=== PATIENT | male | born 1930 | race Caucasian/White ===

== ENCOUNTER → 2017-03-23 | Outpatient (CLI) | payer MEDICARE, BC ==
[~2017-03-23] MED LIST: ALP5 PO; ASPI-757 PO; ATOR20TA22 PO; DILT180C4 PO; DILT180C73 PO; EZET1TAB81 PO; LEV100 PO; LEV125 PO; LEV25 PO; LEVO-3 PO; LORA-1455 PO; LORA-630 PO; OXYGENHOME INH; PNEI IJ; SIMV-42 PO; TOBR5DRO55 OP; [UNRECOGNIZED DRUG - CODE] OP; vitorin
[2017-03-23 15:44] LABS: PLATELET COUNT, AUTOMATED 120 K/uL (150-450)
== END ==
LOC: LAB 15:28
PROVIDERS: ATTEND Family Medicine
DX: I10 Essential (primary) hypertension (principal); E03.9 Hypothyroidism, unspecified
CPT/HCPCS: 36415; 82040; 82247; 82310; 82374; 82435; 82565; 82947; 84075; 84132; 84155; 84295; 84443; 84450; 84460; 84520; 85025

== ENCOUNTER 2017-03-24 17:02 | Observation (INO) | payer MEDICARE, BC ==
[~2017-03-24] VITALS: Ht 170.2 cm; Wt 84.1 kg
[2017-03-24] MEDS ORDERED: ASPIRIN 81 MG CHEW PO ONE (17:25)
[2017-03-24 17:31] LABS: PLATELET COUNT, AUTOMATED 122 K/uL (150-450)
--- NOTE | 2017-03-24 17:33 | ER Report ---
History and Physical Time Seen By MD: 17:15 Hx. of Stated Complaint: PT REPORTS COUGH, SNIFFLES, CHILLS, AND STERNAL CHEST PAIN SINCE THURSDAY HPI/ROS CHIEF COMPLAINT: Cough, chest pain, fever HISTORY OF PRESENT ILLNESS: Patient is a 87-year-old male accompanied by his , who presents the ED with complaint of cough and chest pain that he has had for the past 5 days. He states that this has worsened in the past 3 days. He states that he has not noted a fever at home. He has been taking some Mucinex with minimal relief. He has not noted any body aches or sore throat. He states that his cough has been productive. He states that he has been more short of breath in the past 3 days. He states that last week he was visiting family in [place], [place] and states that he did have a grandchild that was ill with similar symptoms. He states that he has been having some nausea today but denies any diarrhea or vomiting. Patient states that he did try to [place] and back. Since he has been back in town he has been more short of breath. He initially treated this to the altitude change. He states that he was diagnosed with BOOP years ago and since this has been on oxygen only at night. He states that he never a stay oxygen during the day. However he has been on oxygen during the day for the past 3 days now. REVIEW OF SYSTEMS: Constitutional: See history of present illness. Eyes: No discharge. ENT: See history of present illness. Cardiovascular: See history of present illness. No palpitations. Respiratory: See history of present illness. Gastrointestinal: No abdominal pain, no vomiting. Musculoskeletal: No back pain. Skin: No rashes. Neurological: Headache Allergies: Coded Allergies: No Known Drug Allergies (Verified , 03/24/17) Home Meds Active Scripts Atorvastatin Calcium (LIPITOR) 20 Mg Tablet, 1 TAB PO QDAY, #90 TAB 4 Refills Prov:ALIRIO MELCHOR MD 02/11/17 Diltiazem Hcl (DILTIAZEM 24HR CD) 180 Mg Cap.er.24h, 1 CAP PO QDAY, #90 CAP 3 Refills Prov:ALIRIO MELCHOR MD 02/10/17 Reported Medications Oxygen (OXYGEN) Inha, 2 L INH HS, L 03/23/17 Tobramycin/Dexamethasone (TOBRAMYCIN-DEXAMETH OPHTH SUSP) 5 Ml Drops.susp, 1 DROP OP BID 03/23/17 Levothyroxine Sodium (LEVOTHYROXINE SODIUM) 0.125 Mg Tab, 1 TAB PO QDAY, TAB 03/23/17 Aspirin (ASPIRIN) 325 Mg Tablet, 0.5 TAB PO QDAY, TAB 10/03/16 Discontinued Reported Medications Levothyroxine Sodium (LEVOTHYROXINE SODIUM) 100 Mcg Tablet, 125 MCG PO QDAY, TAB 10/03/16 Lorazepam (ATIVAN) 0.5 Mg Tablet, 0.5-1 TAB PO BID for 30 Days 10/03/16 Reviewed Nurses Notes: Yes Old Medical Records Reviewed: Yes Hx Smoking: Yes Smoking Status: Former Smoker Hx Substance Use Disorder: No Hx Alcohol Use: No Constitutional Vital Sign - Last 24 Hours 03/24/17 03/24/17 03/24/17 03/24/17 17:07 17:09 17:12 17:17 Temp 100.9 Pulse 57 65 79 Resp 18 30 25 B/P (MAP) 136/80 (98) 136/80 Pulse Ox 78 94 95 O2 Delivery Room Air 03/24/17 03/24/17 03/24/17 03/24/17 17:17 17:22 17:27 17:39 Pulse 65 75 Resp 32 24 B/P (MAP) 137/62 (87) Pulse Ox 96 95 O2 Flow Rate 2.0 03/24/17 03/24/17 03/24/17 03/24/17 17:41 17:41 17:42 17:46 Pulse 66 72 96 Resp 18 17 18 Pulse Ox 92 97 O2 Delivery Nasal Cannula O2 Flow Rate 2.0 03/24/17 03/24/17 03/24/17 03/24/17 17:47 17:52 17:57 18:00 Pulse 68 76 79 Resp 22 26 11 B/P (MAP) 124/54 (77) Pulse Ox 93 92 92 03/24/17 03/24/17 03/24/17 03/24/17 18:02 18:07 18:12 18:17 Pulse 80 80 80 80 Resp 22 24 19 19 Pulse Ox 90 93 93 91 03/24/17 03/24/17 03/24/17 03/24/17 18:22 18:27 18:30 18:32 Pulse 53 70 59 Resp 19 21 8 B/P (MAP) 127/68 (87) Pulse Ox 93 90 91 03/24/17 03/24/17 18:37 18:42 Pulse 75 60 Resp 24 15 Pulse Ox 94 94 Intake and Output 03/24/17 03/24/17 03/25/17 15:00 23:00 07:00 Intake Total 500 ml Balance 500 ml Physical Exam General Appearance: The patient is alert, has no immediate need for airway protection and no signs of toxicity. Patient appears to be no acute distress. Eyes: Pupils equal and round no pallor or injection. ENT, Mouth: Mucous membranes are moist. Respiratory: There are no retractions, lungs are clear to auscultation. Cardiovascular: Regular rate and rhythm. Gastrointestinal: Abdomen is soft and non tender, no masses, bowel sounds normal. Skin: Warm and dry, no rashes. Musculoskeletal: Neck is supple non tender. Extremities are nontender, nonswollen and have full range of motion. DIFFERENTIAL DIAGNOSIS: After history and physical exam differential diagnosis was considered for chest pain including but not limited to myocardial ischemia, pericarditis pulmonary embolus, chest wall pain, pleural inflammation and pulmonary infectious causes. Medical Decision Making Data Points Result Diagram: 03/24/17 1715 03/24/17 1715 Laboratory Hematology Test 03/24/17 17:15 03/24/17 17:17 Red Blood Count 5.25 M/uL (4.00-5.60) Mean Corpuscular Volume 94.3 fL (80.0-96.0) Mean Corpuscular Hemoglobin 32.1 pg (26.0-33.0) Mean Corpuscular Hemoglobin Concent 34.1 g/dL (32.0-36.0) Red Cell Distribution Width 14.8 % (11.5-14.5) Mean Platelet Volume 8.4 fL (7.2-11.1) Neutrophils (%) (Auto) 66.6 % (39.4-72.5) Lymphocytes (%) (Auto) 14.4 % (17.6-49.6) Monocytes (%) (Auto) 14.5 % (4.1-12.4) Eosinophils (%) (Auto) 3.9 % (0.4-6.7) Basophils (%) (Auto) 0.6 % (0.3-1.4) Nucleated RBC Relative Count (auto) 0.0 /100WBC Neutrophils # (Auto) 6.4 K/uL (2.0-7.4) Lymphocytes # (Auto) 1.4 K/uL (1.3-3.6) Monocytes # (Auto) 1.4 K/uL (0.3-1.0) Eosinophils # (Auto) 0.4 K/uL (0.0-0.5) Basophils # (Auto) 0.1 K/uL (0.0-0.1) Nucleated RBC Absolute Count (auto) 0.00 K/uL Sodium Level 137 mmol/L (137-145) Potassium Level 4.0 mmol/L (3.5-5.0) Chloride Level 100 mmol/L (98-107) Carbon Dioxide Level 25 mmol/L (22-30) Blood Urea Nitrogen 18 mg/dl (9-21) Creatinine 1.00 mg/dl (0.66-1.25) Glomerular Filtration Rate Calc > 60.0 Random Glucose 97 mg/dl (75-110) Calcium Level 8.9 mg/dl (8.4-10.2) Total Bilirubin 1.2 mg/dl (0.2-1.3) Aspartate Amino Transf (AST/SGOT) 24 U/L (0-35) Alanine Aminotransferase (ALT/SGPT) 23 U/L (0-56) Alkaline Phosphatase 98 U/L (0-126) Troponin I 0.013 ng/ml B-Type Natriuretic Peptide 342 pg/ml (0-100) Total Protein 7.6 gm/dl (6.3-8.2) Albumin 4.0 g/dl (3.5-5.0) Influenza Type A Antigen Positive (NEGATIVE) Influenza Type B Antigen Negative (NEGATIVE) Chemistry Test 03/24/17 17:15 03/24/17 17:17 White Blood Count 9.7 k/uL (4.5-11.0) Red Blood Count 5.25 M/uL (4.00-5.60) Hemoglobin 16.9 g/dL (14.0-18.0) Hematocrit 49.5 % (42.0-52.0) Mean Corpuscular Volume 94.3 fL (80.0-96.0) Mean Corpuscular Hemoglobin 32.1 pg (26.0-33.0) Mean Corpuscular Hemoglobin Concent 34.1 g/dL (32.0-36.0) Red Cell Distribution Width 14.8 % (11.5-14.5) Platelet Count 122 K/uL (150-450) Mean Platelet Volume 8.4 fL (7.2-11.1) Neutrophils (%) (Auto) 66.6 % (39.4-72.5) Lymphocytes (%) (Auto) 14.4 % (17.6-49.6) Monocytes (%) (Auto) 14.5 % (4.1-12.4) Eosinophils (%) (Auto) 3.9 % (0.4-6.7) Basophils (%) (Auto) 0.6 % (0.3-1.4) Nucleated RBC Relative Count (auto) 0.0 /100WBC Neutrophils # (Auto) 6.4 K/uL (2.0-7.4) Lymphocytes # (Auto) 1.4 K/uL (1.3-3.6) Monocytes # (Auto) 1.4 K/uL (0.3-1.0) Eosinophils # (Auto) 0.4 K/uL (0.0-0.5) Basophils # (Auto) 0.1 K/uL (0.0-0.1) Nucleated RBC Absolute Count (auto) 0.00 K/uL Glomerular Filtration Rate Calc > 60.0 Calcium Level 8.9 mg/dl (8.4-10.2) Total Bilirubin 1.2 mg/dl (0.2-1.3) Aspartate Amino Transf (AST/SGOT) 24 U/L (0-35) Alanine Aminotransferase (ALT/SGPT) 23 U/L (0-56) Alkaline Phosphatase 98 U/L (0-126) Troponin I 0.013 ng/ml B-Type Natriuretic Peptide 342 pg/ml (0-100) Total Protein 7.6 gm/dl (6.3-8.2) Albumin 4.0 g/dl (3.5-5.0) Influenza Type A Antigen Positive (NEGATIVE) Influenza Type B Antigen Negative (NEGATIVE) EKG/Imaging EKG Interpretation 12 lead EKG: Rhythm: Normal sinus rhythm with frequent PVCs, rate 99 bpm [place]: normal ST segments: No acute ST changes identified. Imaging CXR: IMPRESSION: 1. No acute cardiopulmonary process. Report Dictated By: Nilesh Carmen at 03/24/2017 5:47 PM Report E-Signed By: Nilesh Carmen at 03/24/2017 5:49 PM I do question whether there is some infiltrate/fluid on the right lingular area. Discussed this with Dr. Samuels, hospitalist. ED Course/Re-evaluation ED Course Will obtain labs, chest x-ray, EKG. Patient will be given 500 mL normal saline bolus, aspirin 324 mg orally, DuoNeb treatment. Patient did feel a little bit better after his DuoNeb treatment. Discussed all labs and imaging with patient. He appears to have influenza A with hypoxia. 03/24/2017 7:02:43 pm - discussed patient with Dr. Samuels, hospitalists, who will accept patient under his care given his influenza a diagnosis with hypoxia. Decision to Disposition Date: Mar 24, 2017 Decision to Disposition Time: 19:04 Depart Departure Latest Vital Signs Vital Signs Date Time Temp Pulse Resp B/P (MAP) Pulse Ox O2 Delivery O2 Flow Rate FiO2 03/24/17 18:42 60 15 94 03/24/17 18:30 127/68 (87) 03/24/17 17:41 Nasal Cannula 2.0 03/24/17 17:09 100.9 Impression: Primary Impression: Influenza A Additional Impression: Hypoxia Condition: Improved Disposition: Admitted from ER Referrals: MEDARDO ABDUL MD (PCP) MD Consult Note: Dr. Samuels, Hospitalist Dr. Marvin, ED Problem Qualifiers SEVEN ABDUL PA-C Mar 24, 2017 17:33
[2017-03-24] MEDS ORDERED: NS(*) 0.9% 500 ML BAG 500 ML IV ONE (17:35)
[2017-03-24] MEDS ORDERED: ALBUTEROL/IPRATROPIUM 3 ML NEB NEB ONE (17:35)
--- NOTE | 2017-03-24 17:53 | RADIOLOGY IMAGING REPORT ---
FACILITY: [facility] [place] PATIENT NAME: Vega Huang : 1930 MR: [id number] V: [id number] EXAM DATE: ORDERING PHYSICIAN: SEVEN ABDUL TECHNOLOGIST: Location: [facility] Patient: Vega Huang : 1930 Visit/Account:[id number] Date of Sevice: 03/24/2017 2 VIEWS CHEST INDICATION: Chest tightness and cough. Recent history of shortness of breath. COMPARISON: None available FINDINGS: Cardiomediastinal silhouette and pulmonary vessels within normal limits. There is no focal infiltrate or lobar consolidation. There is no pneumothorax or pleural effusion. No nodule. Mild scarring seen in both lungs. Eventration right hemidiaphragm. Upper abdomen is unremarkable. No acute bony abnormality. Surgical c lips seen in the left neck. IMPRESSION: 1. No acute cardiopulmonary process. Report Dictated By: Nilesh Carmen at 03/24/2017 5:47 PM Report E-Signed By: Nilesh Carmen at 03/24/2017 5:49 PM WSN:[id number]
[2017-03-24] MEDS ORDERED: OSELTAMIVIR PHOS 75 MG CAP PO ONE (18:30)
[2017-03-24 19:52] VITALS: BP 141/63
[2017-03-24] MEDS ORDERED: methylPREDNIS SUCC 125 MG/2ML IVP ONE (21:25)
[2017-03-24] MEDS ORDERED: ALBUTEROL 2.5 MG/3 ML NEB NEB PRN (21:25)
[2017-03-24] MEDS ORDERED: ACETAMINOPHEN 325 MG TAB PO PRN (21:25)
--- NOTE | 2017-03-24 21:29 | EKG ---
FACILITY: [facility] PATIENT NAME: MARIELY DOLL : [id number] MR: [id number] V: [id number] EXAM DATE: ORDERING PHYSICIAN: SEVEN ABDUL TECHNOLOGIST: Test Reason : Blood Pressure : / mmHG Vent. Rate : 099 BPM Atrial Rate : 099 BPM P-R Int : 154 ms QRS Dur : 084 ms QT Int : 374 ms P-R-T Axes : 054 002 043 degrees QTc Int : 479 ms Sinus rhythm with Possible premature atrial complexes with aberrant conduction Otherwise normal ECG Borderline tachycardia Confirmed by SANDRA YI ([id number]) on 03/25/2017 6:40:07 AM Referred By: Confirmed By:SANDRA YI
--- NOTE | 2017-03-24 22:04 | History & Physical ---
History of Present Illness History of Present Illness 87yo male with a h/o resolved BOOP who came to the ER for cough x5 days and chest pain. The patient was in his normal state of health until about 5 days ago. He developed a cough. He was in [place] at the time and drove home about 2 days ago. Yesterday, he saw his PCP at it was noted that he was initially a bit hypoxic on room air, but improved with rest. This is common when he comes back from a lower altitude. Today, he developed a dull chest pain this morning. It is about 4-5/10 that is worsened with coughing. No n/v/diarrhea/ rash/mouth sores. He was exposed to sick children in [place]. The family that traveled with him to [place] have URI symptoms. 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 (2) History of atrial fibrillation Status: Resolved (3) Essential tremor (4) MALIGNANT NEOPLASM OF TONGUE, UNSPECIFIED (5) Elevated PSA (6) Hypertension Status: Chronic (7) Hypothyroid Status: Chronic Home Meds Active Scripts Atorvastatin Calcium (LIPITOR) 20 Mg Tablet, 1 TAB PO QDAY, #90 TAB 4 Refills Prov:ALIRIO MELCHOR MD 02/11/17 Diltiazem Hcl (DILTIAZEM 24HR CD) 180 Mg Cap.er.24h, 1 CAP PO QDAY, #90 CAP 3 Refills Prov:ALIRIO MELCHOR MD 02/10/17 Reported Medications Oxygen (OXYGEN) Inha, 2 L INH HS, L 03/23/17 Tobramycin/Dexamethasone (TOBRAMYCIN-DEXAMETH OPHTH SUSP) 5 Ml Drops.susp, 1 DROP OP BID 03/23/17 Levothyroxine Sodium (LEVOTHYROXINE SODIUM) 0.125 Mg Tab, 1 TAB PO QDAY, TAB 03/23/17 Aspirin (ASPIRIN) 325 Mg Tablet, 0.5 TAB PO QDAY, TAB 10/03/16 Discontinued Reported Medications Levothyroxine Sodium (LEVOTHYROXINE SODIUM) 100 Mcg Tablet, 125 MCG PO QDAY, TAB 10/03/16 Lorazepam (ATIVAN) 0.5 Mg Tablet, 0.5-1 TAB PO BID for 30 Days 10/03/16 Allergies: Coded Allergies: No Known Drug Allergies (Verified , 03/24/17) Other Social/Family Hx No history of smoking. No current alcohol use. Lives with his in [place]. Hx Smoking: Yes Smoking Status: Former Smoker Caffeine Intake: Coffee, Tea, Soda Caffeine/Cups Per Day: 3 CUPS COFFEE, 2 CUPS TEA, 1 SODA Hx Alcohol Use: No Hx Substance Use Disorder: No Social Drug Use: Never Review of Systems All Systems Reviewed/Normal: Yes, Except as Noted Exam Vital Signs Vital Signs Date Time Temp Pulse Resp B/P (MAP) Pulse Ox O2 Delivery O2 Flow Rate FiO2 03/24/17 19:52 97.9 52 24 141/63 (89) 89 Nasal Cannula 2.0 General Appearance: No Acute Distress, Other (Eyes closed most of the time.) Neuro: No Gross deficits Eyes: PERRLA ENT: Moist Mucous Membranes Cardiovascular: Regular Rate and Rhythm Respiratory: Clear to Auscultation (but coughs with deeper breaths) GI: Abd Soft and Non-Tender : No CVA Tenderness Extremities: No Edema Integumentary: No Jaundice, No Cyanosis Medical Decision Making Data Points Result Diagram: 03/24/17 1715 03/24/17 1715 Item Value Date Time B-Type Natriuretic Peptide 342 pg/ml H 03/24/17 1715 Thyroid Stimulating Hormone (TSH) 0.85 uIU/ml 03/23/17 1535 Total Bilirubin 1.2 mg/dl 03/24/17 1715 Aspartate Amino Transf (AST/SGOT) 24 U/L 03/24/17 1715 Alanine Aminotransferase (ALT/SGPT) 23 U/L 03/24/17 1715 Alkaline Phosphatase 98 U/L 03/24/17 1715 Troponin I 0.013 ng/ml 03/24/17 1715 Influenza Type A Antigen Positive 03/24/17 1717 Influenza Type B Antigen Negative 03/24/17 1717 Urine WBC <1 /HPF 03/24/16 1040 Urine RBC None /HPF 03/24/16 1040 Urine Urobilinogen Negative mg/dL 03/24/16 1040 Urine Bilirubin Negative 03/24/16 1040 Urine Leukocyte Esterase Negative 03/24/16 1040 Urine Squamous Epithelial Cells None /LPF 03/24/16 1040 Urine Nitrite Negative 03/24/16 1040 Platelet Count 122 K/uL L 03/24/17 1715 Platelet Count 120 K/uL L 03/23/17 1535 Monocytes (%) (Auto) 14.5 % H 03/24/17 1715 Monocytes (%) (Auto) 14.0 % H 03/23/17 1535 Monocytes (%) (Auto) 10.6 % 03/24/16 1040 Platelet Count 210 K/uL 03/24/16 1040 Neutrophils (%) (Auto) 55.1 % 03/24/16 1040 Neutrophils (%) (Auto) 67.6 % 03/23/17 1535 Neutrophils (%) (Auto) 66.6 % 03/24/17 1715 Lymphocytes (%) (Auto) 14.4 % L 03/24/17 1715 Lymphocytes (%) (Auto) 14.8 % L 03/23/17 1535 Lymphocytes (%) (Auto) 28.0 % 03/24/16 1040 White Blood Count 8.4 k/uL 03/23/17 1535 White Blood Count 7.2 k/uL 03/24/16 1040 EKG / Imaging EKG Interpretation NSR with PVC trigeminy. No ST-T abnormalities. Imaging CXR - 1. No acute cardiopulmonary process. Assessment and Plan Problems: (1) Influenza A Status: Acute Assessment & Plan: He presented with 5 days of cough, but pleuritic chest pain for a day. He had a fever in the ER and mild hypoxia. The family didn't feel comfortable with him going home. Will place in contact isolation, give supplemental O2 and treat with renally dosed Tamiflu. Nebs helped the chest pain in the ER, so will give scheduled DuoNeb and prn Albuterol. Will give a dose of methylprednisolone. (2) Hypoxia Status: Acute Assessment & Plan: He has a h/o BOOP that is "resolved". He wears O2 at night and wears it during the day when he comes back from trips at lower elevations like his recent trip to [place]. (3) Hypertension Status: Chronic Assessment & Plan: Will hold diltiazem because lowish HR. He might need to be on another medication. (4) Hypothyroid Status: Chronic Assessment & Plan: Continue levothyroxine. (5) History of atrial fibrillation Status: Resolved Assessment & Plan: He is in a NSR here. He takes ASA 162mg a day and is on Diltiazem. See above. (6) BOOP (bronchiolitis obliterans with organizing pneumonia) Status: Resolved Copies to: MEDARDO ABDUL MD Venous Thromboembolism Antithrombotics Is Pt On Any Antithrombotics?: No Exam Sepsis Risk: No Definite Risk SANDRA YI MD Mar 24, 2017 22:04
[2017-03-24 22:47] VITALS: BP 125/73
[2017-03-25 03:20] VITALS: BP 111/57
[2017-03-25 05:56] LABS: PLATELET COUNT, AUTOMATED 112 K/uL (150-450)
[2017-03-25] MEDS ORDERED: LEVOTHYROXINE SOD 0.125 MG TAB PO SCH (06:00)
[2017-03-25 07:23] VITALS: BP 142/76
[2017-03-25] MEDS ORDERED: ALBU2.5V36 NEB (08:39)
[2017-03-25] MEDS ORDERED: OSEL30CA PO (08:39)
[2017-03-25] MEDS ORDERED: ACET-2007 PO (08:39)
[2017-03-25] MEDS ORDERED: PRED20TA6 PO (08:39)
--- NOTE | 2017-03-25 08:52 | Hospitalist Depart ---
Discharge Summary Reason for Hosp/Final Diag: (1) Influenza A Status: Acute Hospital Course & Plan: He presented with 5 days of cough and pleuritic chest pain for a day. He had a fever in the ER and mild hypoxia. He was admitted to the medical floor and placed in contact isolation, given supplemental O2 and started on Tamiflu (reduced dose due to age/creatinine clearance). He did have some mild persistent hypoxia and will now be on continuous oxygen. He did receive a short pulse of steroids and will complete a course as an outpatient. He will follow up with Dr. Abdul in the next week. (2) Hypoxia Status: Acute Hospital Course & Plan: He has a history of BOOP that is "resolved". No changes were noted on CXR. He wears O2 at night and has been wearing it during the day when he comes back from trips at lower elevations - like his recent trip to [place]. He will now be on continuous oxygen. He will follow up with Dr. Abdul regarding this as well. (3) Hypertension Status: Chronic Hospital Course & Plan: His BPs were under good control, but he was noted to have borderline heart rate on occasion during his stay. Will continue his same for now, but may need to consider changing his regimen as an outpatient. (4) Hypothyroid Status: Chronic Hospital Course & Plan: Continue levothyroxine. (5) History of atrial fibrillation Status: Resolved Hospital Course & Plan: He was in sinus rhythm while here. He takes ASA 162mg a day and is on Diltiazem. (6) BOOP (bronchiolitis obliterans with organizing pneumonia) Status: Resolved Departure Weight (Pounds): 185 Weight (Ounces): 6.0 Result Diagram: 03/25/17 0541 03/24/17 171 Item Value Date Time Albumin 4.0 g/dl 03/24/171714 Total Protein 7.6 gm/dl 03/24/171714 Troponin I 0.013 ng/ml 03/24/17 171 Alkaline Phosphatase 98 U/L 03/24/17 1715 Alanine Aminotransferase (ALT/SGPT) 23 U/L 03/24/17 171 Aspartate Amino Transf (AST/SGOT) 24 U/L 03/24/17 171 Total Bilirubin 1.2 mg/dl 03/24/17 171 Calcium Level 8.9 mg/dl 03/24/17 1715 Troponin I 0.014 ng/ml 03/25/17 0541 Urine Color Yellow 03/24/16 1040 Urine Clarity Clear 03/24/16 1040 Urine pH 5.0 pH 03/24/16 1040 Urine Specific [place] 1.009 03/24/16 1040 Urine Protein Negative mg/dL 03/24/16 1040 Urine Glucose (UA) Negative mg/dL 03/24/16 1040 Urine Ketones Negative mg/dL 03/24/16 1040 Urine Blood Negative 03/24/16 1040 Urine Nitrite Negative 03/24/16 1040 Urine Bilirubin Negative 03/24/16 1040 Urine Urobilinogen Negative mg/dL 03/24/16 1040 Urine Leukocyte Esterase Negative 03/24/16 1040 Urine RBC None /HPF 03/24/16 1040 Urine WBC <1 /HPF 03/24/16 1040 Urine Squamous Epithelial Cells None /LPF 03/24/16 1040 Urine Bacteria Negative /HPF 03/24/16 1040 Urine Mucus None /HPF 03/24/16 1040 Influenza Type A Antigen Positive 03/24/17 1717 Influenza Type B Antigen Negative 03/24/17 1717 White Blood Count 9.7 k/uL 03/24/17 1715 Hemoglobin 16.9 g/dL 03/24/17 1715 Hematocrit 49.5 % 03/24/17 1715 Platelet Count 122 K/uL L 03/24/17 1715 Imaging PATIENT NAME: Mariely Doll : 1930 MR: [id number] V: [id number] EXAM DATE: ORDERING PHYSICIAN: SEVEN ABDUL TECHNOLOGIST: Location: [facility] Patient: Mariely Doll : 1930 Visit/Account:[id number] Date of Sevice: 03/24/2017 2 VIEWS CHEST INDICATION: Chest tightness and cough. Recent history of shortness of breath. COMPARISON: None available FINDINGS: Cardiomediastinal silhouette and pulmonary vessels within normal limits. There is no focal infiltrate or lobar consolidation. There is no pneumothorax or pleural effusion. No nodule. Mild scarring seen in both lungs. Eventration right hemidiaphragm. Upper abdomen is unremarkable. No acute bony abnormality. Surgical clips seen in the left neck. IMPRESSION: 1. No acute cardiopulmonary process. Report Dictated By: Nilesh Carmen at 03/24/2017 5:47 PM Report E-Signed By: Nilesh Carmen at 03/24/2017 5:49 PM WSN:[id number] EKG PATIENT NAME: MARIELY DOLL : [id number] MR: [id number] V: [id number] EXAM DATE: ORDERING PHYSICIAN: SEVEN ABDUL TECHNOLOGIST: Test Reason : Blood Pressure : / mmHG Vent. Rate : 099 BPM Atrial Rate : 099 BPM P-R Int : 154 ms QRS Dur : 084 ms QT Int : 374 ms P-R-T Axes : 054 002 043 degrees QTc Int : 479 ms Sinus rhythm with Possible premature atrial complexes with aberrant conduction Otherwise normal ECG Borderline tachycardia Confirmed by SANDRA YI ([id number]) on 03/25/2017 6:40:07 AM Referred By: Confirmed By:SANDRA YI Condition: Improved Discharge: Home, Self Care Time Spent: > 30 min Discharge Instructions Home Meds Active Scripts Prednisone (PREDNISONE) 20 Mg Tablet, 40 MG PO QDAY, #6 TAB 0 Refills Two pills a day for two days, then one pill a day for two days then off Prov:NANCY SHARP MD 03/25/17 Oseltamivir Phosphate (Oseltamivir Phosphate) 30 Mg Capsule, 30 MG PO BID, #10 CAPSULE 0 Refills Prov:NANCY SHARP MD 03/25/17 Albuterol Sulfate 0.083% (ALBUTEROL SULFATE 0.083%) 2.5 Mg/3 Ml Vial.neb, 2.5 MG NEB Q4HR Y for SHORTNESS OF BREATH, #100 VIAL 1 Refill Prov:NANCY SHARP MD 03/25/17 Acetaminophen (MAPAP) 325 Mg Tablet, 650 MG PO Q6H Y for PAIN OR FEVER 100 OR GREATER for 14 Days, TAB Prov:NANCY SHARP MD 03/25/17 Atorvastatin Calcium (LIPITOR) 20 Mg Tablet, 1 TAB PO QDAY, #90 TAB 4 Refills Prov:ALIRIO MELCHOR MD 02/11/17 Diltiazem Hcl (DILTIAZEM 24HR CD) 180 Mg Cap.er.24h, 1 CAP PO QDAY, #90 CAP 3 Refills Prov:ALIRIO MELCHOR MD 02/10/17 Reported Medications Oxygen (OXYGEN) Inha, 2 L INH HS, L 03/23/17 Tobramycin/Dexamethasone (TOBRAMYCIN-DEXAMETH OPHTH SUSP) 5 Ml Drops.susp, 1 DROP OP BID 03/23/17 Levothyroxine Sodium (LEVOTHYROXINE SODIUM) 0.125 Mg Tab, 1 TAB PO QDAY, TAB 03/23/17 Aspirin (ASPIRIN) 325 Mg Tablet, 0.5 TAB PO QDAY, TAB 10/03/16 Discontinued Reported Medications Levothyroxine Sodium (LEVOTHYROXINE SODIUM) 100 Mcg Tablet, 125 MCG PO QDAY, TAB 10/03/16 Lorazepam (ATIVAN) 0.5 Mg Tablet, 0.5-1 TAB PO BID for 30 Days 10/03/16 Follow up Referrals: Internal Medicine @ [facility] with Dacia Abdul Md Diet: Regular, Low Cholesterol & Sat Fat Activity: As Tolerated, No Exertion Special Instructions: Home oxygen at 3L via nasal cannula continuously. Follow up with Dr. Abdul in approximately one week or sooner if any problems. Copies to: DACIA ABDUL MD Venous Thromboembolism Antithrombotics Is Pt On Any Antithrombotics?: No NANCY SHARP MD Mar 25, 2017 08:52
--- NOTE | 2017-03-25 08:53 | Antimicrobial Stewardship ---
Antimicrobial Stewardship MD Service: Hospitalist Indications: Other (Influenza A) Antimicrobial Used Tamiflu 75mg x1 on 03/24/17 PM dose, then 30mg po BID (CrCl ~50ml/min) Duration of Therapy: 5 Days Height (Calculated Centimeters: [phone] Weight (Calculated Kilograms): 84.085 Creatinine Cl CrCl ~50 ml/min Culture Results: No Patient Improving Clinically: Yes Tolerating Oral Fluids: Yes Able to Absorb PO Meds: Yes Received >24 hr of IV Abx: No Comments Plan is for patient to discharge home. Afebrile since 1700 on 03/24/17, on Tamiflu. Continue Tamiflu 30 mg po BID x 5 days. Close contacts have initiated prophylaxis. Soumya Wahl, PharmD, BCOP [facility] Mar 25, 2017 08:53
[2017-03-25] MEDS ORDERED: ENOXAPARIN 40 MG/0.4ML SYR SC SCH (09:00)
[2017-03-25] MEDS ORDERED: TOBRAMYCIN/DEX OP SUSP 2.5 ML OU SCH (09:00)
[2017-03-25] MEDS ORDERED: OSELTAMIVIR PHOS 30 MG CAP PO SCH (09:00)
[2017-03-25] MEDS ORDERED: ASPIRIN 81 MG ENTERIC COATED PO SCH (09:00)
[2017-03-25] MEDS ORDERED: predniSONE 20 MG TAB PO SCH (09:00)
== END 2017-03-25 08:35 | disposition home or self-care (01) ==
LOC: ER 17:10 → MED 18:46 → INTOOBSV 18:46
PROVIDERS: ADMIT Internal Medicine; ATTEND Internal Medicine
DX: J09.X2 Influenza due to identified novel influenza A virus with other respiratory manifestations (principal); R09.02 Hypoxemia; I10 Essential (primary) hypertension; E03.9 Hypothyroidism, unspecified; I48.2 Chronic atrial fibrillation; Z79.01 Long term (current) use of anticoagulants; R06.02 Shortness of breath
CPT/HCPCS: 36415; 71046; 83880; 84484; 85025; 87502; 93005; 94640; 96360; 99285; A9270; G0378; J2930; J7040; J7512; J7613; J7620; 82040; 82247; 82310; 82374; 82435; 82565; 82947; 84075; 84132; 84155; 84295; 84450; 84460; 84520

== ENCOUNTER → 2017-04-30 | Outpatient (CLI) | payer MEDICARE, BC ==
[~2017-04-30] MED LIST changes: +ACET-2007 PO; +ALBU2.5V36 NEB; +FLUT16SP19 NS; +OSEL30CA PO; +PRED20TA6 PO
== END ==
LOC: LAB 11:41
PROVIDERS: ATTEND Urology
DX: R97.20 Elevated prostate specific antigen [PSA] (principal)
CPT/HCPCS: 36415; 84153

== ENCOUNTER → 2017-08-17 | Outpatient (CLI) | payer MEDICARE, BC ==
[~2017-08-17] MED LIST changes: +CLOB15OI16 TP; +GUAI473L81 PO; +LEV112 PO
--- NOTE | 2017-08-17 10:42 | EKG ---
FACILITY: [facility] - [place], [place] PATIENT NAME: MARIELY DOLL : [id number] MR: [id number] V: [id number] EXAM DATE: ORDERING PHYSICIAN: MEDARDO ABDUL TECHNOLOGIST: PATRICIA Sullivan Reason : IRREGULAR HEART BEAT Blood Pressure : / mmHG Vent. Rate : 073 BPM Atrial Rate : 073 BPM P-R Int : 178 ms QRS Dur : 094 ms QT Int : 408 ms P-R-T Axes : 040 -13 050 degrees QTc Int : 449 ms Sinus rhythm with occasional premature ventricular complexes Otherwise normal ECG When compared with ECG of 24-MAR-2017 17:12, premature ventricular complexes are now present aberrant conduction is no longer present Referred By: MEDARDO ABDUL Confirmed By:
== END ==
LOC: RESP 10:34
PROVIDERS: ATTEND Family Medicine
DX: Z02.9 Encounter for administrative examinations, unspecified (principal)

== ENCOUNTER → 2017-08-17 | Outpatient (REF) | payer MEDICARE, BC | LOC: ZZSENDIN 10:49 | PROVIDERS: ATTEND Urology | DX: R97.20 Elevated prostate specific antigen [PSA] (principal) | CPT/HCPCS: 84153 ==

== ENCOUNTER → 2017-08-17 | Outpatient (CLI) | payer MEDICARE, BC ==
[2017-08-17 10:58] LABS: PLATELET COUNT, AUTOMATED 142 K/uL (150-450)
== END ==
LOC: LAB 10:33
PROVIDERS: ATTEND Family Medicine
DX: R00.0 Tachycardia, unspecified (principal)
CPT/HCPCS: 36415; 82040; 82247; 82310; 82374; 82435; 82565; 82947; 84075; 84132; 84155; 84295; 84443; 84450; 84460; 84520; 85025

== ENCOUNTER → 2017-09-21 | Outpatient (CLI) | payer MEDICARE, BC | LOC: LAB 09:22 | PROVIDERS: ATTEND Family Medicine | DX: E03.9 Hypothyroidism, unspecified (principal) | CPT/HCPCS: 36415; 84443 ==

== ENCOUNTER 2018-01-09 12:30 | Emergency (ER) | payer MEDICARE, BC ==
--- NOTE | 2018-01-09 12:41 | ER Report ---
History and Physical Time Seen By MD: 12:41 HPI/ROS CHIEF COMPLAINT: hip injury and bruising and pain by knee HISTORY OF PRESENT ILLNESS: This is an 87 year old male. He had an injury to the right buttock and hip area, where he thought he pulled a muscle. Several days later started getting bruising in the lower thigh, just above the knee. This has progressed down into the lateral calf as well. Has some pain over the lateral hamstring tendon. Has some pain in the gluteus muscles of the right hip. He was worried about possible blood clots with associated swelling in the thigh and into the calf. Normal sensation in the leg. No shortness of breath or chest pain. Allergies: Coded Allergies: No Known Drug Allergies (Verified , 03/24/17) Home Meds Active Scripts Levothyroxine Sodium (LEVOTHYROXINE SODIUM) 0.112 Mg Tab, 1 TAB PO QDAY for 90 Days, #90 TAB 4 Refills Prov:MEDARDO ABDUL MD 11/17/17 Atorvastatin Calcium (LIPITOR) 20 Mg Tablet, 1 TAB PO QDAY, #90 TAB 4 Refills Prov:ALIRIO MELCHOR MD 02/11/17 Diltiazem Hcl (DILTIAZEM 24HR CD) 180 Mg Cap.er.24h, 1 CAP PO QDAY, #90 CAP 3 Refills Prov:ALIRIO MELCHOR MD 02/10/17 Reported Medications Oxygen (OXYGEN) Inha, 2 L INH HS, L 03/23/17 Aspirin (ASPIRIN) 325 Mg Tablet, 0.5 TAB PO QDAY, TAB 10/03/16 Discontinued Reported Medications Tobramycin/Dexamethasone (TOBRAMYCIN-DEXAMETH OPHTH SUSP) 5 Ml Drops.susp, 1 DROP OP BID 03/23/17 Discontinued Scripts Clobetasol Propionate (CLOBETASOL PROPIONATE) 15 Gm Oint...g., 1 BREE TP PRN for 90 Days, #1 TUBE 0 Refills Prov:MEDARDO ABDUL MD 06/01/17 Albuterol Sulfate 0.083% (ALBUTEROL SULFATE 0.083%) 2.5 Mg/3 Ml Vial.neb, 2.5 MG NEB Q4HR PRN for SHORTNESS OF BREATH, #100 VIAL 1 Refill Prov:NANCY SHARP MD 03/25/17 Acetaminophen (MAPAP) 325 Mg Tablet, 650 MG PO Q6H PRN for PAIN OR FEVER 100 OR GREATER for 14 Days, TAB Prov:NANCY SHARP MD 03/25/17 Reviewed Nurses Notes: Yes Hx Smoking: Yes Smoking Status: Former Smoker Hx Substance Use Disorder: No Hx Alcohol Use: No Constitutional Vital Sign - Last 24 Hours 01/09/18 12:42 Temp 98.5 Pulse 76 Resp 20 B/P (MAP) 146/82 Pulse Ox 91 O2 Delivery Room Air Physical Exam General: Alert, no acute distress. Musculoskeletal: Some pain in the right gluteus area. No pain over greater trochanter, pelvis or groin area. Has pain mainly over the muscles. No pain in the thigh until the lateral hamstring tendon. No other pain in the knee. Not much worse with range of motion. Skin: Bruising behind the knee, more medial, that extends to the lateral calf. No masses. Slight swelling in thigh and just below knee. Cardiovascular: Normal distal pulses and capillary refill. Neuro: Normal sensation throughout, no deficits. Medical Decision Making Data Points Result Diagram: 01/09/18 1257 01/09/18 1257 Laboratory Hematology Test 01/09/18 12:57 Red Blood Count 4.90 M/uL (4.00-5.60) Mean Corpuscular Volume 97.8 fL (80.0-96.0) Mean Corpuscular Hemoglobin 32.9 pg (26.0-33.0) Mean Corpuscular Hemoglobin Concent 33.6 g/dL (32.0-36.0) Red Cell Distribution Width 15.0 % (11.5-14.5) Mean Platelet Volume 7.6 fL (7.2-11.1) Neutrophils (%) (Auto) 57.4 % (39.4-72.5) Lymphocytes (%) (Auto) 21.5 % (17.6-49.6) Monocytes (%) (Auto) 13.4 % (4.1-12.4) Eosinophils (%) (Auto) 6.3 % (0.4-6.7) Basophils (%) (Auto) 1.4 % (0.3-1.4) Nucleated RBC Relative Count (auto) 0.0 /100WBC Neutrophils # (Auto) 3.9 K/uL (2.0-7.4) Lymphocytes # (Auto) 1.5 K/uL (1.3-3.6) Monocytes # (Auto) 0.9 K/uL (0.3-1.0) Eosinophils # (Auto) 0.4 K/uL (0.0-0.5) Basophils # (Auto) 0.1 K/uL (0.0-0.1) Nucleated RBC Absolute Count (auto) 0.00 K/uL Prothrombin Time 13.7 seconds (12.0-14.4) Prothromb Time International Ratio 1.05 Activated Partial Thromboplast Time 27 seconds (23-35) Sodium Level 140 mmol/L (137-145) Potassium Level 4.2 mmol/L (3.5-5.0) Chloride Level 104 mmol/L (98-107) Carbon Dioxide Level 25 mmol/L (22-30) Blood Urea Nitrogen 18 mg/dl (9-21) Creatinine 1.10 mg/dl (0.66-1.25) Glomerular Filtration Rate Calc > 60.0 Random Glucose 122 mg/dl (75-110) Calcium Level 9.2 mg/dl (8.4-10.2) Total Bilirubin 1.0 mg/dl (0.2-1.3) Aspartate Amino Transf (AST/SGOT) 19 U/L (0-35) Alanine Aminotransferase (ALT/SGPT) 18 U/L (0-56) Alkaline Phosphatase 71 U/L (0-126) Total Protein 7.2 g/dl (6.3-8.2) Albumin 4.0 g/dl (3.5-5.0) Chemistry Test 01/09/18 12:57 White Blood Count 6.8 k/uL (4.5-11.0) Red Blood Count 4.90 M/uL (4.00-5.60) Hemoglobin 16.1 g/dL (14.0-18.0) Hematocrit 47.9 % (42.0-52.0) Mean Corpuscular Volume 97.8 fL (80.0-96.0) Mean Corpuscular Hemoglobin 32.9 pg (26.0-33.0) Mean Corpuscular Hemoglobin Concent 33.6 g/dL (32.0-36.0) Red Cell Distribution Width 15.0 % (11.5-14.5) Platelet Count 164 K/uL (150-450) Mean Platelet Volume 7.6 fL (7.2-11.1) Neutrophils (%) (Auto) 57.4 % (39.4-72.5) Lymphocytes (%) (Auto) 21.5 % (17.6-49.6) Monocytes (%) (Auto) 13.4 % (4.1-12.4) Eosinophils (%) (Auto) 6.3 % (0.4-6.7) Basophils (%) (Auto) 1.4 % (0.3-1.4) Nucleated RBC Relative Count (auto) 0.0 /100WBC Neutrophils # (Auto) 3.9 K/uL (2.0-7.4) Lymphocytes # (Auto) 1.5 K/uL (1.3-3.6) Monocytes # (Auto) 0.9 K/uL (0.3-1.0) Eosinophils # (Auto) 0.4 K/uL (0.0-0.5) Basophils # (Auto) 0.1 K/uL (0.0-0.1) Nucleated RBC Absolute Count (auto) 0.00 K/uL Prothrombin Time 13.7 seconds (12.0-14.4) Prothromb Time International Ratio 1.05 Activated Partial Thromboplast Time 27 seconds (23-35) Glomerular Filtration Rate Calc > 60.0 Calcium Level 9.2 mg/dl (8.4-10.2) Total Bilirubin 1.0 mg/dl (0.2-1.3) Aspartate Amino Transf (AST/SGOT) 19 U/L (0-35) Alanine Aminotransferase (ALT/SGPT) 18 U/L (0-56) Alkaline Phosphatase 71 U/L (0-126) Total Protein 7.2 g/dl (6.3-8.2) Albumin 4.0 g/dl (3.5-5.0) Coagulation Test 01/09/18 12:57 Prothrombin Time 13.7 seconds Prothromb Time International Ratio 1.05 Activated Partial Thromboplast Time 27 seconds EKG/Imaging Imaging HIP RIGHT HISTORY: Bruising swelling pain hip and knee ADDITIONAL HISTORY: None. COMPARISON: None. FINDINGS: AP view the pelvis and coned-down frog-leg view of the right hip was obtained. There is minimal narrowing in both hip joints. No hip fracture is identified. Both femoral heads have a normal configuration. Pelvic ring is intact. Symphysis and SI joints are within normal limits. There is no pubic ramus fracture. Degenerative changes present in the lower lumbar spine. Bones are osteopenic. IMPRESSION: No evidence of acute osseous abnormality of the right hip or pelvis. If there is ongoing concern for a fracture, cross-sectional imaging could be considered. Report Dictated By: Rubina Zuniga MD at 01/09/2018 1:39 PM KNEE 4 VIEW RIGHT Indication: Bruising, swelling, and pain Comparison: None available Findings: 4 views right knee were obtained. No evidence of fracture, dislocation, or acute osseous abnormality of the right knee. The joint spaces are well-maintained. There is mild tricompartmental osteophytosis. No evidence of joint effusion. There is no focal soft tissue abnormality. No evidence of radiopaque foreign body. Mild/moderate popliteal vascular calcifications. IMPRESSION: 1.No acute osseous abnormality of the right knee. 2. Mild degenerative changes. Report Dictated By: Jason De La Vega MD at 01/09/2018 2:10 PM VENOUS DOPP LOW RIGHT EXTREMIT HISTORY: bruising, swelling, pain, right leg hip to knee COMPARISON: None. FINDINGS: Grayscale, duplex and color Doppler interrogation of the right lower extremity deep veins from common femoral vein to proximal calf was completed. The greater saphenous vein in the proximal thigh was evaluated using similar technique. Common femoral vein - Negative. Femoral vein - Negative. Deep femoral vein - Negative. Popliteal vein - Negative. Visualized deep calf veins - Negative. Popliteal fossa: Negative. Greater saphenous vein in the proximal thigh: Negative. IMPRESSION: No evidence for DVT. Report Dictated By: Jason De La Vega MD at 01/09/2018 2:01 PM ED Course/Re-evaluation ED Course Reviewed the results of imaging with the patient. Labs are unremarkable. Conservative management. Could consider starting physical therapy. Decision to Disposition Date: Jan 09, 2018 Decision to Disposition Time: 14:40 Depart Departure Latest Vital Signs Vital Signs Date Time Temp Pulse Resp B/P (MAP) Pulse Ox O2 Delivery O2 Flow Rate FiO2 01/09/18 12:42 98.5 76 20 146/82 91 Room Air Impression: Primary Impression: Bruising Additional Impression: Muscle strain of right gluteal region Condition: Improved Disposition: HOME OR SELF-CARE Referrals: MEDARDO ABDUL MD (PCP) Patient Instructions: Contusion in Adults (ED), Muscle Strain (ED) Additional Instructions: There is no sign of blood clot or bony abnormality on imaging today. Bruising appears to been caused by a muscle strain in the hip and gluteal area. The results of the bruising is lower on the leg is due to grafting causing the blood to track down to the lower area. He can use Tylenol or ibuprofen as needed for pain. Heating pad or cold packs as needed Problem Qualifiers Additional Impression: Muscle strain of right gluteal region Encounter type: initial encounter Qualified Codes: S76.011A - Strain of muscle, fascia and tendon of right hip, initial encounter MARY BARCLAY MD Jan 09, 2018 12:41
[2018-01-09 12:42] VITALS: BP 146/82
[2018-01-09 13:07] LABS: PLATELET COUNT, AUTOMATED 164 K/uL (150-450)
[2018-01-09 13:27] LABS: INR 1.05
--- NOTE | 2018-01-09 13:44 | RADIOLOGY IMAGING REPORT ---
FACILITY: [facility] PATIENT NAME: Vega Huang : 1930 MR: [id number] V: [id number] EXAM DATE: ORDERING PHYSICIAN: MARY BARCLAY TECHNOLOGIST: [facility]: [facility] Patient: Vega Huang : 1930 Visit/Account:[id number] Date of Sevice: 01/09/2018 HIP RIGHT HISTORY: Bruising swelling pain hip and knee ADDITIONAL HISTORY: None. COMPARISON: None. FINDINGS: AP view the pelvis and coned-down frog-leg view of the right hip was obtained. There is minimal narro wing in both hip joints. No hip fracture is identified. Both femoral heads have a normal configuratio n. Pelvic ring is intact. Symphysis and SI joints are within normal limits. There is no pubic ramus f racture. Degenerative changes present in the lower lumbar spine. Bones are osteopenic. IMPRESSION: No evidence of acute osseous abnormality of the right hip or pelvis. If there is ongoing concern for a fracture, cross-sectional imaging could be considered. Report Dictated By: Rubina Zuniga MD at 01/09/2018 1:39 PM Report E-Signed By: Rubina Zuniga MD at 01/09/2018 1:40 PM WSN:[id number]
--- NOTE | 2018-01-09 14:06 | RADIOLOGY IMAGING REPORT ---
FACILITY: [facility] PATIENT NAME: Vega Huang : 1930 MR: [id number] V: [id number] EXAM DATE: ORDERING PHYSICIAN: MARY BARCLAY TECHNOLOGIST: Location: [facility] - [place] Patient: Vega Huang : 1930 Visit/Account:[id number] Date of Sevice: 01/09/2018 VENOUS DOPP LOW RIGHT EXTREMIT HISTORY: bruising, swelling, pain, right leg hip to knee COMPARISON: None. FINDINGS: Grayscale, duplex and color Doppler interrogation of the right lower extremity deep veins from common femoral vein to proximal calf was completed. The greater saphenous vein in the proximal thigh was ev aluated using similar technique. Common femoral vein - Negative. Femoral vein - Negative. Deep femoral vein - Negative. Popliteal vein - Negative. Visualized deep calf veins - Negative. Popliteal fossa: Negative. Greater saphenous vein in the proximal thigh: Negative. IMPRESSION: No evidence for DVT. Report Dictated By: Jason De La Vega MD at 01/09/2018 2:01 PM Report E-Signed By: Jason De La Vega MD at 01/09/2018 2:02 PM [id number]
--- NOTE | 2018-01-09 14:16 | RADIOLOGY IMAGING REPORT ---
FACILITY: [facility] PATIENT NAME: Vega Huang : 1930 MR: [id number] V: [id number] EXAM DATE: ORDERING PHYSICIAN: MARY BRACLAY TECHNOLOGIST: Location: [facility] - [place] Patient: Vega Huang : 1930 Visit/Account:[id number] Date of Sevice: 01/09/2018 KNEE 4 VIEW RIGHT Indication: Bruising, swelling, and pain Comparison: None available Findings: 4 views right knee were obtained. No evidence of fracture, dislocation, or acute osseous abnormality of the right knee. The joint spaces are well-maintained. There is mild tricompartmental osteophytosis. No evidence of joint effusion. There is no focal soft tissue abnormality. No evidence of radiopaque foreign body. Mild/moderate popliteal vascular calcifications. IMPRESSION: 1.No acute osseous abnormality of the right knee. 2. Mild degenerative changes. Report Dictated By: Jason De La Vega MD at 01/09/2018 2:10 PM Report E-Signed By: Jason De La Vega MD at 01/09/2018 2:12 PM WSN:[id number]
== END 2018-01-09 14:52 | disposition home or self-care (01) ==
LOC: ER 12:39
DX: S76.011A Strain of muscle, fascia and tendon of right hip, initial encounter (principal); S70.11XA Contusion of right thigh, initial encounter; S80.11XA Contusion of right lower leg, initial encounter
CPT/HCPCS: 36415; 73564; 82040; 82247; 82310; 82374; 82435; 82565; 82947; 84075; 84132; 84155; 84295; 84450; 84460; 84520; 85025; 85610; 85730; 99284

== ENCOUNTER → 2018-01-22 | Outpatient (CLI) | payer MEDICARE, BC | LOC: LAB 11:44 | PROVIDERS: ATTEND Urology | DX: R97.20 Elevated prostate specific antigen [PSA] (principal) | CPT/HCPCS: 36415; 84153 ==

== ENCOUNTER → 2018-03-24 | Outpatient (CLI) | payer MEDICARE, BC | LOC: LAB 10:14 | PROVIDERS: ATTEND Family Medicine | DX: E03.9 Hypothyroidism, unspecified (principal); E78.5 Hyperlipidemia, unspecified; I10 Essential (primary) hypertension | CPT/HCPCS: 36415; 82040; 82247; 82310; 82374; 82435; 82465; 82565; 82947; 83718; 84075; 84132; 84155; 84295; 84443; 84450; 84460; 84478; 84520 ==

== ENCOUNTER → 2018-03-26 | Outpatient (CLI) | payer MEDICARE, BC | LOC: US 06:50 | PROVIDERS: ATTEND Family Medicine | DX: I34.0 Nonrheumatic mitral (valve) insufficiency (principal); I34.1 Nonrheumatic mitral (valve) prolapse | CPT/HCPCS: 93306 ==

== ENCOUNTER 2018-05-04 18:47 | Emergency (ER) | payer MEDICARE, BC ==
--- NOTE | 2018-05-04 18:57 | ER Report ---
History and Physical Time Seen By MD: 18:57 Hx. of Stated Complaint: PT REPORTS CHEST COLD/COUGH THAT HURTS WITH COUGH. HPI/ROS CHIEF COMPLAINT: cough, chest congestion HISTORY OF PRESENT ILLNESS: 88-year-old male presents to ED with cough for three days. Patient states he wants to rule out flu and pneumonia, and get on top of treatment if he has infection. Reports sore throat, runny nose, stuffy nose, sinus congestion, and productive cough started three days ago. Denies fever, chills, night sweats, body aches. Reports pain to middle of chest and upper abdomen when he coughs. Denies chest pain with deep breaths, rest, or activity. Reports mild headache/sinus pressure that started 3 days ago. Denies being short of breath, however, patient has been taking nebulizer treatments. Last treatment was this morning. Reports that the treatments help him feel better. REVIEW OF SYSTEMS: HEENT: Reports sore throat, runny nose, sinus congestion, watery eyes. Denies changes to vision, ear pain. Respiratory: Reports productive cough and chest pain with cough. Denies dyspnea. Cardiovascular: Reports chest pain with cough. Denies chest pain at rest, with activity, or taking a deep breath. Denies palpitations. Gastrointestinal: No vomiting, no abdominal pain, no diarrhea. Reports recent constipation. Allergies: Coded Allergies: No Known Drug Allergies (Verified , 05/04/18) Home Meds Active Scripts Diltiazem Hcl (DILTIAZEM 24HR CD) 180 Mg Cap.er.24h, 1 CAP PO QDAY, #90 CAP 4 Refills Prov:MEDARDO ABDUL MD 01/25/18 Levothyroxine Sodium (LEVOTHYROXINE SODIUM) 0.112 Mg Tab, 1 TAB PO QDAY for 90 Days, #90 TAB 4 Refills Prov:MEDARDO ABDUL MD 11/17/17 Atorvastatin Calcium (LIPITOR) 20 Mg Tablet, 1 TAB PO QDAY, #90 TAB 4 Refills Prov:ALIRIO MELCHOR MD 02/11/17 Reported Medications Oxygen (OXYGEN) Inha, 2 L INH HS, L 03/23/17 Aspirin (ASPIRIN) 325 Mg Tablet, 0.5 TAB PO QDAY, TAB 10/03/16 Past Medical/Surgical History Medical hx of irregular heart beat, hypertension, hypercholesterolemia, hypothyroidism, anxiety, oral cancer. Hx of pneumonia in 2005. Surgical hx of appendectomy 23 year ago. Reviewed Nurses Notes: Yes Hx Smoking: Yes Smoking Status: Former Smoker Hx Substance Use Disorder: No Hx Alcohol Use: No Constitutional Vital Sign - Last 24 Hours 05/04/18 05/04/18 05/04/18 05/04/18 18:51 18:51 18:58 19:00 Temp 97.6 Pulse 82 Resp 18 B/P (MAP) 144/75 144/75 (98) 141/71 (94) Pulse Ox 90 O2 Delivery Room Air O2 Flow Rate 2.0 05/04/18 05/04/18 05/04/18 05/04/18 19:02 19:17 19:22 19:37 Pulse 68 72 65 71 Pulse Ox 95 90 88 90 05/04/18 05/04/18 05/04/18 19:52 20:00 20:07 Pulse 72 66 B/P (MAP) 146/69 (94) Pulse Ox 89 87 Physical Exam General Appearance: The patient is alert, has no immediate need for airway protection and no current signs of toxicity. Eyes: Pupils equal and round no injection. Bilateral eyes with watery discharge. Right eye lid with erythema. Respiratory: Chest is non tender to palpation, lungs with inspiratory crackles throughout. Cardiac: regular rate, abnormal rhythm. Gastrointestinal: Abdomen is distended. Reports pain with palpation to upper quadrants below diaphragm. Non tender to lower quadrants, no masses, bowel sounds normal. Musculoskeletal: Neck: Neck is supple and non tender. Skin: No rashes or lesions. [DIFFERENTIAL DIAGNOSIS: After history and physical exam differential diagnosis was considered for influenza, pneumonia, upper respiratory tract infection, cou gh, constipation. Medical Decision Making Data Points Result Diagram: 05/04/18191905/04/181919 Laboratory Hematology Test 05/04/18 18:53 05/04/18 19:20 Influenza Virus Type A (PCR) Negative (NEGATIVE) Influenza Virus Type B (PCR) Negative (NEGATIVE) Red Blood Count 5.01 M/uL (4.00-5.60) Mean Corpuscular Volume 96.2 fL (80.0-96.0) Mean Corpuscular Hemoglobin 32.3 pg (26.0-33.0) Mean Corpuscular Hemoglobin Concent 33.6 g/dL (32.0-36.0) Red Cell Distribution Width 14.9 % (11.5-14.5) Mean Platelet Volume 7.9 fL (7.2-11.1) Neutrophils (%) (Auto) 59.1 % (39.4-72.5) Lymphocytes (%) (Auto) 19.4 % (17.6-49.6) Monocytes (%) (Auto) 13.1 % (4.1-12.4) Eosinophils (%) (Auto) 7.8 % (0.4-6.7) Basophils (%) (Auto) 0.6 % (0.3-1.4) Nucleated RBC Relative Count (auto) 0.0 /100WBC Neutrophils # (Auto) 4.5 K/uL (2.0-7.4) Lymphocytes # (Auto) 1.5 K/uL (1.3-3.6) Monocytes # (Auto) 1.0 K/uL (0.3-1.0) Eosinophils # (Auto) 0.6 K/uL (0.0-0.5) Basophils # (Auto) 0.0 K/uL (0.0-0.1) Nucleated RBC Absolute Count (auto) 0.00 K/uL Sodium Level 138 mmol/L (137-145) Potassium Level 4.0 mmol/L (3.5-5.0) Chloride Level 104 mmol/L (98-107) Carbon Dioxide Level 26 mmol/L (22-30) Blood Urea Nitrogen 19 mg/dl (9-21) Creatinine 1.20 mg/dl (0.66-1.25) Glomerular Filtration Rate Calc 57.4 Random Glucose 115 mg/dl (75-110) Calcium Level 9.1 mg/dl (8.4-10.2) Total Bilirubin 0.9 mg/dl (0.2-1.3) Aspartate Amino Transf (AST/SGOT) 19 U/L (0-35) Alanine Aminotransferase (ALT/SGPT) 18 U/L (0-56) Alkaline Phosphatase 88 U/L (0-126) Total Protein 7.6 g/dl (6.3-8.2) Albumin 4.3 g/dl (3.5-5.0) Chemistry Test 05/04/18 18:53 05/04/18 19:20 Influenza Virus Type A (PCR) Negative (NEGATIVE) Influenza Virus Type B (PCR) Negative (NEGATIVE) White Blood Count 7.5 k/uL (4.5-11.0) Red Blood Count 5.01 M/uL (4.00-5.60) Hemoglobin 16.2 g/dL (14.0-18.0) Hematocrit 48.3 % (42.0-52.0) Mean Corpuscular Volume 96.2 fL (80.0-96.0) Mean Corpuscular Hemoglobin 32.3 pg (26.0-33.0) Mean Corpuscular Hemoglobin Concent 33.6 g/dL (32.0-36.0) Red Cell Distribution Width 14.9 % (11.5-14.5) Platelet Count 166 K/uL (150-450) Mean Platelet Volume 7.9 fL (7.2-11.1) Neutrophils (%) (Auto) 59.1 % (39.4-72.5) Lymphocytes (%) (Auto) 19.4 % (17.6-49.6) Monocytes (%) (Auto) 13.1 % (4.1-12.4) Eosinophils (%) (Auto) 7.8 % (0.4-6.7) Basophils (%) (Auto) 0.6 % (0.3-1.4) Nucleated RBC Relative Count (auto) 0.0 /100WBC Neutrophils # (Auto) 4.5 K/uL (2.0-7.4) Lymphocytes # (Auto) 1.5 K/uL (1.3-3.6) Monocytes # (Auto) 1.0 K/uL (0.3-1.0) Eosinophils # (Auto) 0.6 K/uL (0.0-0.5) Basophils # (Auto) 0.0 K/uL (0.0-0.1) Nucleated RBC Absolute Count (auto) 0.00 K/uL Glomerular Filtration Rate Calc 57.4 Calcium Level 9.1 mg/dl (8.4-10.2) Total Bilirubin 0.9 mg/dl (0.2-1.3) Aspartate Amino Transf (AST/SGOT) 19 U/L (0-35) Alanine Aminotransferase (ALT/SGPT) 18 U/L (0-56) Alkaline Phosphatase 88 U/L (0-126) Total Protein 7.6 g/dl (6.3-8.2) Albumin 4.3 g/dl (3.5-5.0) EKG/Imaging Imaging Technique: CHEST PA LAT, KUB SINGLE VIEW ABDOMEN HISTORY: constipation Comparison studies: Chest radiograph 03/24/2017 FINDINGS: Scarring is noted within the midlungs. No acute airspace consolid ation. There is pulmonary hyperexpansion. No pleural effusion. The cardiomediastinal silhouette is unchanged. No evidence organomegaly. Moderate to large stool volume is seen throughout the colon and rectal vault. IMPRESSION: 1. Moderate to large stool volume throughout the colon and rectal vault. 2. Chronic lung findings as above. Report Dictated By: Quentin Campos DO at 05/04/2018 7:56 PM Report E-Signed By: Quentin Campos DO at 05/04/2018 7:59 PM ED Course/Re-evaluation ED Course Patient was admitted to an exam room, history and physical were obtained. Differential diagnoses were considered. On examination lungs are clear, heart is regular, abdomen soft nontender. With the patient being ill like he has significant concerns about influenza. An influenza screen was done, a CBC, CMP, chest x-ray. Labs were unremarkable. It does appear that this is a viral illness. Chest x-ray was negative. A KUB x-ray was done of the abdomen as he does have some distention. I did show moderate to large stool in his colon. I discussed this with the patient and his family. We will go ahead and give him a magnesium citrate to take home. He is to follow-up with his primary care provider. Patient verbalized understanding and agreement with plan. Decision to Disposition Date: May 04, 2018 Decision to Disposition Time: 20:16 Depart Departure Latest Vital Signs Vital Signs Date Time Temp Pulse Resp B/P (MAP) Pulse Ox O2 Delivery O2 Flow Rate FiO2 05/04/18 20:07 66 87 05/04/18 20:00 146/69 (94) 05/04/18 18:58 2.0 05/04/18 18:51 97.6 18 Room Air Impression: Primary Impression: Upper respiratory infection Additional Impression: Constipation Condition: Improved Disposition: HOME OR SELF-CARE Referrals: MEDARDO ABDUL MD (PCP) Patient Instructions: Upper Respiratory Infection (ED) Additional Instructions: Increase fluid intake. Get plenty of rest. Follow up with your primary care provider in the next week. Take Tylenol or Ibuprofen as needed for pain. Return to the ER if condition worsens. Take the Mag Citrate tomorrow morning. Problem Qualifiers Primary Impression: Upper respiratory infection URI type: unspecified viral URI Qualified Codes: J06.9 - Acute upper respiratory infection, unspecified Additional Impression: Constipation Constipation type: unspecified constipation type Qualified Codes: K59.00 - Constipation, unspecified SCOOBY MEEKS May 04, 2018 18:57
[2018-05-04 19:28] LABS: PLATELET COUNT, AUTOMATED 166 K/uL (150-450)
[2018-05-04 20:00] VITALS: BP 146/69
--- NOTE | 2018-05-04 20:03 | RADIOLOGY IMAGING REPORT ---
FACILITY: [facility] PATIENT NAME: Vega Huang : 1930 MR: [id number] V: [id number] EXAM DATE: ORDERING PHYSICIAN: SCOOBY MEEKS TECHNOLOGIST: Location: [facility] [place] Patient: Vega Huang : 1930 Visit/Account:[id number] Date of Sevice: 05/04/2018 Technique: CHEST PA LAT, KUB SINGLE VIEW ABDOMEN HISTORY: constipation Comparison studies: Chest radiograph 03/24/2017 FINDINGS: Scarring is noted within the midlungs. No acute airspace consolidation. There is pulmonary hyperexpansion. No pleural effusion. The cardiomediastinal silhouette is unchanged. No evidence organ omegaly. Moderate to large stool volume is seen throughout the colon and rectal vault. IMPRESSION: 1. Moderate to large stool volume throughout the colon and rectal vault. 2. Chronic lung findings as above. Report Dictated By: Quentin Campos DO at 05/04/2018 7:56 PM Report E-Signed By: Quentin Campos DO at 05/04/2018 7:59 PM [id number]
--- NOTE | 2018-05-04 20:04 | RADIOLOGY IMAGING REPORT ---
[place] [facility] [place]: Vega Huang : 1930 MR: [id number]: [id number] EXAM DATE: ORDERING PHYSICIAN: SCOOBY MEEKS TECHNOLOGIST: Location: [facility] - [place] Patient: Vega Huang : 1930 Visit/Account:[id number] Date of Sevice: 05/04/2018 Technique: CHEST PA LAT, KUB SINGLE VIEW ABDOMEN HISTORY: constipation Comparison studies: Chest radiograph 03/24/2017 FINDINGS: Scarring is noted within the midlungs. No acute airspace consolidation. There is pulmonary hyperexpansion. No pleural effusion. The cardiomediastinal silhouette is unchanged. No evidence organ omegaly. Moderate to large stool volume is seen throughout the colon and rectal vault. IMPRESSION: 1. Moderate to large stool volume throughout the colon and rectal vault. 2. Chronic lung findings as above. Report Dictated By: Quentin Campos DO at 05/04/2018 7:56 PM Report E-Signed By: Quentin Campos DO at 05/04/2018 7:59 PM WSN:[id number]
== END 2018-05-04 20:28 | disposition home or self-care (01) ==
LOC: ER 19:29
DX: J06.9 Acute upper respiratory infection, unspecified (principal); K59.00 Constipation, unspecified
CPT/HCPCS: 71046; 74018; 82040; 82247; 82310; 82374; 82435; 82565; 82947; 84075; 84132; 84155; 84295; 84450; 84460; 84520; 85025; 87502; 99284

== ENCOUNTER → 2018-08-17 | Outpatient (CLI) | payer MEDICARE, BC | LOC: LAB 10:06 | PROVIDERS: ATTEND Urology | DX: R97.20 Elevated prostate specific antigen [PSA] (principal) | CPT/HCPCS: 36415; 84153 ==

== ENCOUNTER → 2018-08-31 | Outpatient (REF) | payer MEDICARE, BC | LOC: ZZSENDIN 12:00 | PROVIDERS: ATTEND Urology | DX: N41.1 Chronic prostatitis (principal); N41.0 Acute prostatitis; N42.89 Other specified disorders of prostate | CPT/HCPCS: 88305; 88344 ==